=== PATIENT | female | born 1955 | race Hispanic/Latino ===

== ENCOUNTER 2023-01-17 16:32 | Emergency (ER) | payer OTHER, BC, MEDICARE ==
[~2023-01-17] VITALS: Ht 162.6 cm; Wt 76.2 kg
[2023-01-17 16:34] VITALS: BP 159/86; PULSE 107; RESP 20
[2023-01-17] MEDS ORDERED: IBUP-2076 PO (20:22)
[2023-01-17] MEDS ORDERED: CYCL10TA16 PO (20:22)
== END 2023-01-17 20:27 | disposition home or self-care (01) ==
LOC: EDH 16:32
DX: S16.1XXA Strain of muscle, fascia and tendon at neck level, initial encounter (principal); I10 Essential (primary) hypertension; Z79.1 Long term (current) use of non-steroidal anti-inflammatories (NSAID); Z90.13 Acquired absence of bilateral breasts and nipples; Z90.49 Acquired absence of other specified parts of digestive tract; V89.2XXA Person injured in unspecified motor-vehicle accident, traffic, initial encounter; Y93.89 Activity, other specified; Y92.89 Other specified places as the place of occurrence of the external cause; Y99.8 Other external cause status
CPT/HCPCS: 70450; 72100; 72125; 73030; 73502